=== PATIENT | female | born 1970 | race Caucasian/White ===

== ENCOUNTER 2017-10-07 08:01 | Day surgery (SDC) | payer MEDICAID ==
[~2017-10-07] VITALS: Ht 162.6 cm; Wt 74.1 kg
[~2017-10-07 08:01] MED LIST: LEVO50 PO; SODIUM CHLORIDE 0.9% 1,000 ML IV ONE
[2017-10-07] MEDS ORDERED: PROPOFOL 1% 20 ML VIAL IVP ONE (08:02)
[2017-10-07] MEDS ORDERED: SODIUM CHLORIDE 0.9% 1,000 ML IV ONE (08:19)
[2017-10-07] MEDS ORDERED: MIDAZOLAM HCL 5 MG/ML VIAL ONE (08:29)
[2017-10-07] MEDS ORDERED: FentaNYL CITRATE-PF 100 MCG/2 ML VIAL ONE (08:30)
== END 2017-10-07 10:55 | disposition home or self-care (01) ==
LOC: SURGERY 08:01 → EDBD 09:30 → SURGERY 10:55
PROVIDERS: ATTEND Internal Medicine Gastroenterology
DX: K29.50 Unspecified chronic gastritis without bleeding (principal); K22.4 Dyskinesia of esophagus; E11.9 Type 2 diabetes mellitus without complications; E03.9 Hypothyroidism, unspecified; F32.9 Major depressive disorder, single episode, unspecified; E66.3 Overweight; Z68.28 Body mass index [BMI] 28.0-28.9, adult; Z98.890 Other specified postprocedural states
CPT/HCPCS: 43239; 88305; 88312; J2704; J7030; J2250; J3010